=== PATIENT | male | born 1965 | race Two or more races ===

== ENCOUNTER 2017-04-24 09:51 | Emergency (ER) | payer SELFPAY ==
[2017-04-24 09:59] VITALS: BP 155/99; PULSE 89; RESP 18; TEMP 98
== END 2017-04-24 10:30 | disposition left against medical advice (07) ==
LOC: EC 09:51
DX: S51.019A Laceration without foreign body of unspecified elbow, initial encounter (principal); X58.XXXA Exposure to other specified factors, initial encounter
CPT/HCPCS: 99499